=== PATIENT | male | born 1995 | race Caucasian/White ===

== ENCOUNTER 2018-12-10 20:12 | Emergency (ER) | payer MEDICAID, SELFPAY ==
[2018-12-10 20:13] VITALS: BP 131/80; PULSE 116; RESP 16; TEMP 36.7; O2SAT 98; BMI 20.6
--- NOTE | 2018-12-10 20:35 | ED.DCSUM_ITS ---
History of Present Illness Chief Complaint: Headache Detail of Chief Complaint: Migraine Informant: Patient Onset: Today Current Severity: Moderate Maximum Severity: Moderate Narrative: Patient presents with migraine headache. He has a history of similar. This migraine started this morning, the patient did have 2 other migraines within the past week. He states it starts out as a generalized headache and then localizes behind his eyes. He has light sensitivity, nausea, and vomiting. He did hit his head on a rack at work over the weekend, but was having increased frequency of migraines even before this occurred. Patient typically takes Imitrex for his headache, but once he gets to the point where he is vomiting he cannot give the medicine and and it is not beneficial. Past Medical History - Allergies and Home Meds Allergies/Adverse Reactions: Allergies No Known Allergies Allergy (Verified 12/10/18 20:14) Primary Care Physician: Javier Bryan MD [Primary Care Provider] - Prior records reviewed: Yes Past Medical History: - - Reviewed Smoking Status: Former smoker Review of Systems General: Denies: Chills, Fever Eyes: Reports: - - Scotomas associated with migraine ENT: Denies: Bilateral ear pain Cardiovascular: Denies: Chest pain Respiratory: Denies: Dyspnea Gastrointestinal: Reports: Nausea, Vomiting. Denies: Abdominal pain Genitourinary: Denies: Dysuria Musculoskeletal: Denies: Neck pain, Back pain, Extremity Pain Skin: Denies: Rash Neurological: Reports: Headache. Denies: Weakness, Parasthesia Physical Exam Vital Signs/Narrative: Vital Signs Temp Pulse Resp BP Pulse Ox 12/10/18 20:13 98.1 F 116 H 16 131/80 H 98 Inital Vital Signs reviewed: Yes General: Well nourished, Well developed Head: Normocephalic ENT: Moist mucous membranes Neck: Supple Cardiovascular: Regular rate, Regular rhythm Respiratory: No distress, CTA bilaterally Abdomen: Soft, Nontender Extremities: Nontender Skin: Normal color, No rash Neurological: Alert, Oriented x3 Psychological: Normal affect Diagnostic/Tx/Re-eval - Medical Decision Making Patient was given Toradol, Reglan, Benadryl, and IV fluids. On repeat evalu ation he is sleeping comfortably. He easily awakens. He does have significant improvement in his headache. He will be discharged home with family at this time. ED Disposition - Plan for ED Patient: Disposition: Home or Assisted Living Diagnosis: Migraine Instructions: ED, Migraine (Classical) Referrals: Javier Bryan MD [Primary Care Provider] - 3-5 Days if not improving
[2018-12-10] MEDS: 0.9% Normal Saline 1,000 ML 999 ML IV (20:46)
[2018-12-10] MEDS: DiphenhydrAMINE 50 MG/ML Syringe 25 MG IV (20:46)
[2018-12-10] MEDS: Ketorolac 30 MG/ML Syringe IV (20:46)
[2018-12-10] MEDS: Metoclopramide 10 MG/2 ML Vial IV (20:48)
[2018-12-10 21:45] VITALS: BP 125/78; PULSE 78; RESP 18; O2SAT 100
== END 2018-12-10 21:45 | disposition home or self-care (01) ==
PROVIDERS: Emergency Provider Emergency Medicine; Family Provider Family Medicine; PCP Family Medicine
DX: G43.909 Migraine, unspecified, not intractable, without status migrainosus (principal); Z87.891 Personal history of nicotine dependence
CPT/HCPCS: 96374; 96375; 99283; J7030; A4216

== ENCOUNTER 2019-04-29 12:52 | Emergency (ER) | payer MEDICAID, SELFPAY ==
[2019-04-29 12:53] VITALS: BP 124/90; PULSE 71; RESP 16; TEMP 37; BMI 20.9
--- NOTE | 2019-04-29 13:58 | ED.VIS.GEN ---
History of Present Illness Chief Complaint: Headache Informant: Patient, Family Narrative: Patient presents the emergency department with approximately 12 hours of migraine headache. Patient reports having a history of migraines and would typically take Imitrex but he is currently out. Patient describes the headache is right retro-orbital in nature. He has had some nausea and vomiting. No rashes. No neurologic deficits. He sees Dr. Galvan for neurology. He describes this headache as fairly typical for him though he only gets a migraine every 2 to 3 months. He has not found a trigger for these headaches. Past Medical History - Allergies and Home Meds Allergies/Adverse Reactions: Allergies No Known Allergies Allergy (Verified 12/10/18 20:14) Primary Care Physician: Javier Bryan MD [Primary Care Provider] - As Needed Smoking Status: Former smoker Review of Systems General: Denies: Chills, Fever, Sweats Eyes: Denies: Visual changes - bilaterally, Diplopia ENT: Denies: Rhinorrhea, Sore throat Cardiovascular: Denies: Chest pain, Palpitations Respiratory: Denies: Dyspnea, Cough, Dyspnea on exertion Gastrointestinal: Reports: Nausea, Vomiting. Denies: Abdominal pain, Diarrhea, Melena, Hematochezia Genitourinary: Denies: Dysuria, Hematuria, Frequency Musculoskeletal: Denies: Back pain, Extremity Pain Skin: Denies: Rash, Wounds Neurological: Reports: Headache. Denies: Weakness, Parasthesia, Numbness Psych: Denies: Suicidal thoughts, Suicidal ideations Physical Exam Vital Signs/Narrative: Vital Signs Temp Pulse Resp BP 04/29/19 12:53 98.6 F 71 16 124/90 H Inital Vital Signs reviewed: Yes General: Well nourished, Well developed, No Acute Distress, - - Patient is lying in a darkened room. Head: Normocephalic, Atraumatic Eyes: Perrl, EOMI ENT: Moist mucous membranes, No rhinorrhea Neck: Supple, Nontender Cardiovascular: Regular rate, Regular rhythm, No murmurs Respiratory: No distress, CTA bilaterally, Chest nontender Abdomen: Soft, Nontender, Nondistended, Normal bowel sounds Back: Nontender, Normal Inspection Extremities: Nontender, No edema Skin: Normal color, No rash Neurological: Alert, Oriented x3, Cranial nerves II-XII grossly intact, Normal Strength, Normal Sensation Psychological: Normal affect, Normal Mood Diagnostic/Tx/Re-eval - Medical Decision Making Patient received Toradol Compazine Benadryl and IV fluids. Repeat examination was performed. He is improved. He has been given a dose of Solu-Medrol before discharge. I will write for him to have a few Imitrex as well as Zofran at home. Return instructions given. Mother will be driving. ED Disposition - Plan for ED Patient: Disposition: Home or Assisted Living Diagnosis: Migraine Instructions: HEADACHE, Unspecified Prescriptions: Sumatriptan Succinate [Imitrex] 50 mg PO .X1 PRN #5 tab Prescription Printed Ondansetron [Zofran Odt] 4 mg PO Q6H PRN PRN #10 tab PRN Reason: Nausea Prescription Printed Referrals: Javier Bryan MD [Primary Care Provider] - As Needed Additional Instructions: Please follow-up with your neurologist as scheduled
[2019-04-29] MEDS: DiphenhydrAMINE 50 MG/ML Syringe 25 MG IV (14:02)
[2019-04-29] MEDS: Ketorolac 30 MG/ML Syringe IV (14:03)
[2019-04-29] MEDS: proCHLORPERazine 10 MG/2 ML Vial IV (14:04)
[2019-04-29] MEDS: 0.9% Normal Saline 1,000 ML 999 ML IV (14:04)
[2019-04-29] MEDS: MethylPREDNISolone 125 MG/2 ML Vial IV (15:16)
[2019-04-29 15:31] VITALS: BP 132/80; PULSE 80; RESP 16; O2SAT 99
== END 2019-04-29 15:35 | disposition home or self-care (01) ==
PROVIDERS: Emergency Provider Emergency Medicine; PCP Family Medicine
DX: G43.909 Migraine, unspecified, not intractable, without status migrainosus (principal); Z87.891 Personal history of nicotine dependence
CPT/HCPCS: 96361; 96374; 96375; 99283; J7030; A4216

== ENCOUNTER 2019-06-13 21:56 | Emergency (ER) | payer OTHER, MEDICAID, SELFPAY ==
[2019-06-13 21:57] VITALS: BP 146/90; PULSE 106; RESP 18; TEMP 36.8; O2SAT 96; BMI 22.0
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
[2019-06-13] MEDS: oxyCODONE 5 MG Tablet PO (22:49)
[2019-06-13 23:36] VITALS: BP 136/80; PULSE 92; RESP 18; O2SAT 96
== END 2019-06-13 23:37 | disposition home or self-care (01) ==
PROVIDERS: Emergency Provider Emergency Medicine; PCP Nurse Practitioner Primary Care
DX: S06.0X0A Concussion without loss of consciousness, initial encounter (principal); S13.4XXA Sprain of ligaments of cervical spine, initial encounter; W31.89XA Contact with other specified machinery, initial encounter; Y92.89 Other specified places as the place of occurrence of the external cause; Y99.0 Civilian activity done for income or pay
CPT/HCPCS: 70450; 72125; 99284

== ENCOUNTER 2019-07-27 18:01 | Emergency (ER) | payer MEDICAID, SELFPAY ==
[2019-06-27 10:36] VITALS: BMI 22.0
[2019-07-27 18:02] VITALS: BP 136/76; PULSE 95; RESP 18; TEMP 36.9; O2SAT 99; BMI 20.6
--- NOTE | 2019-07-27 18:14 | EKG12_ITS ---
Test Reason : CP Blood Pressure : / mmHG Vent. Rate : 084 BPM Atrial Rate : 084 BPM P-R Int : 140 ms QRS Dur : 092 ms QT Int : 348 ms P-R-T Axes : 076 068 059 degrees QTc Int : 411 ms Normal sinus rhythm with sinus arrhythmia Normal ECG Confirmed by FELIPA GREGORY, WIN ([id number]), supervising editor news reel ARCHIE CELESTIN ([id number]) on 07/29/2019 10:16:00 AM Referred By: Confirmed By:WIN LEO MD
--- NOTE | 2019-07-27 18:15 | ED.DCSUM_ITS ---
History of Present Illness Chief Complaint: Chest Pain Informant: Patient Onset: Today Narrative: Patient states that approximately 2 hours ago he began to have a sharp chest pain mid aspect of his chest. States he was very mild and he was able to go for short bike ride through the [place] with his girlfriend. However on his drive home he states he got worse. It started making him feel short of breath. He states the chest pain and the shortness of breath is made him feel like coughing. Denies any fevers. No URI symptoms. He is a has a history of Tourette's but is not currently on any medications. Non-smoker. No DVT PE risk factors. Past Medical History - Allergies and Home Meds Allergies/Adverse Reactions: Allergies No Known Allergies Allergy (Verified 07/27/19 18:02) Primary Care Physician: Gi Henderson NP-C [Primary Care Provider] - Smoking Status: Never smoker Review of Systems General: Denies: Chills, Fever, Sweats Eyes: Denies: Visual changes - bilaterally, Diplopia ENT: Denies: Rhinorrhea, Sore throat Cardiovascular: Reports: Chest pain. Denies: Palpitations Respiratory: Reports: Dyspnea. Denies: Cough, Dyspnea on exertion Gastrointestinal: Denies: Abdominal pain, Nausea, Vomiting, Diarrhea, Melena, Hematochezia Genitourinary: Denies: Dysuria, Hematuria, Frequency Musculoskeletal: Denies: Back pain, Extremity Pain Skin: Denies: Rash, Wounds Neurological: Denies: Headache, Weakness, Parasthesia, Numbness Physical Exam Vital Signs/Narrative: Vital Signs Temp Pulse Resp BP Pulse Ox 07/27/19 18:02 98.5 F 95 18 136/76 H 99 Inital Vital Signs reviewed: Yes General: Well nourished, Well developed, No Acute Distress Head: Normocephalic, Atraumatic Eyes: Perrl, EOMI ENT: Moist mucous membranes, No rhinorrhea Neck: Supple, Nontender Cardiovascular: Regular rate, Regular rhythm, No murmurs Respiratory: No distress, CTA bilaterally, Chest tenderness - Tender palpation along the costochondral border of the mid chest Abdomen: Soft, Nontender, Nondistended, Normal bowel sounds Back: Nontender, Normal Inspection Extremities: Nontender, No edema Skin: Normal color, No rash Neurological: Alert, Oriented x3, Cranial nerves II-XII grossly intact, Normal Strength, Normal Sensation Psychological: - - Patient appears anxious Diagnostic/Tx/Re-eval Laboratory Last Values WBC 7.1 K/mm3 (4.4-11.0) 07/27/19 18:30 RBC 4.72 M/mm3 (4.6-6.2) 07/27/19 18:30 Hgb 14.2 g/dL (13.0-16.5) 07/27/19 18:30 Hct 40.0 % (40-54) 07/27/19 18:30 MCV 84.7 fL (80-94) 07/27/19 18:30 MCH 30.1 pg (27.0-32.0) 07/27/19 18: MCHC 35.5 g/dL (32-36) 07/27/19 18: RDW Std Deviation 36.6 fl (35.1-43.9) 07/27/19 18: RDW Coeff of Malika 11.9 % (11.6-14.6) 07/27/19 18: Plt Count 232 K/mm3 (150-450) 07/27/19 18: MPV 9.1 fl (6.2-12.0) 07/27/19 18:30 Immature Gran % (Auto) 0.300 % (0.0-0.9) 07/27/19 18:30 Neut % (Auto) 60.4 % (47-70) 07/27/19 18:30 Lymph % (Auto) 28.9 % (19-41) 07/27/19 18:30 [place] % (Auto) 8.4 % (0-10) 07/27/19 18:30 Eos % (Auto) 1.3 % (0-5) 07/27/19 18:30 Baso % (Auto) 0.7 % (0-1) 07/27/19 18:30 Absolute Neuts (auto) 4.3 X10^3/uL (2.0-7.7) 07/27/19 18:30 Absolute Lymphs (auto) 2.04 X10^3/uL (0.83-4.51) 07/27/19 18:30 Nucleated RBC % 0 % (0-5) 07/27/19 18:30 D-Dimer Quant (PE/DVT) 0.28 FEU/ug/m (0.27-0.49) 07/27/19 18:30 Sodium 140 mmol/L (136-145) 07/27/19 18:30 Potassium 3.6 mmol/L (3.5-5.1) 07/27/19 18:30 Chloride 104 mmol/L (98-107) 07/27/19 18:30 Carbon Dioxide 29.0 mmol/L (21.0-32.0) 07/27/19 18:30 Anion Gap 7 (5-15) 07/27/19 18:30 BUN 17 mg/dL (7-18) 07/27/19 18:30 Creatinine 1.13 mg/dL (0.70-1.30) 07/27/19 18:30 Estim Creat Clear Calc 100.00 ml/min 07/27/19 18:30 Est GFR (MDRD) Af Amer 104 mL/min (>60) 07/27/19 18:30 Est GFR (MDRD) Non-Af 86 mL/min (>60) 07/27/19 18:30 BUN/Creatinine Ratio 15.0 RATIO (10-20) 07/27/19 18:30 Glucose 90 mg/dL (74-106) 07/27/19 18:30 Calcium 9.2 mg/dL (8.5-10.1) 07/27/19 18:30 Troponin I < 0.015 ng/mL (<0.045) 07/27/19 18:30 - EKG Initial EKG Interpretation: Sinus Rhythm - EKG demonstrates a normal sinus rhythm at a rate of 84 without ectopy or concerning features of ACS - Medical Decision Making Chest x-ray did not show pneumothorax pleural effusion infiltrate or concerning features. Normal mediastinal silhouette. D-dimer and troponin negative. CBC and BMP were normal. His EKG is normal sinus rhythm. He has had no events on the monitor. As his pain was reproducible with palpation I give him a dose of Toradol. I believe this to be costochondritis with probably a degree of anxiety. Would recommend anti-inflammatories and avoidance of heavy lifting. He works in the [employer] department has a shift tomorrow I will write him a note if he is feeling he is unable to perform his duties. ED Disposition - Plan for ED Patient: Disposition: Home or Assisted Living Diagnosis: Costochondritis, acute, Dyspnea, Chest pain Instructions: ED CHEST PAIN [place] Referrals: Gi Henderson, HOUSEKEEPING SUPERVISOR [employer] [Primary Care Provider] - 1 Week if not improving
[2019-07-27] MEDS: Ketorolac 30 MG/ML Syringe IV (18:36)
[2019-07-27 18:39] VITALS: BP 115/80; PULSE 79; RESP 16; TEMP 36.6; O2SAT 97
--- NOTE | 2019-07-27 18:40 | RAD_ITS ---
STUDY: X-RAY CHEST REASON FOR EXAM: Male, 24 years old. chest pain with sob and cough TECHNIQUE: Single frontal view of the chest. COMPARISON: None. FINDINGS: The lungs are clear and expanded. There is no demonstrated pleural abnormality. Normal size heart. Normal mediastinum and martina. Normal visualized pulmonary arteries. Normal visualized aortic arch and descending thoracic aorta. Normal visualized thoracic spine. Normal visualized ribs, clavicles, and shoulders. There is no demonstrated abnormality of the visualized soft tissue structures of the upper abdomen. RAD/Chest 1 View (Portable) IMPRESSION: Normal x-ray examination of the chest. Electronically Signed: Nicholas Kerr MD at 19:31 EDT , Service support ,
[2019-07-27 18:41] LABS: Absolute Lymphocyte Count 2.04 X10^3/uL (0.83-4.51); Absolute Neutrophil Count 4.3 X10^3/uL (2.0-7.7); Basophil# 0.05 X10^3/uL; Basophil% 0.7 % (0-1); Eosinophil# 0.09 X10^3/uL; Eosinophils% 1.3 % (0-5); Hemoglobin 14.2 g/dL (13.0-16.5); Lymphocyte # 2.04 X10^3/ul (4.0); Lymphocyte % 28.9 % (19-41); Mean Corp Hgb Conc 35.5 g/dL (32-36); Mean Corpuscular Hgb 30.1 pg (27.0-32.0); Mean Corpuscular Volume 84.7 fL (80-94); Mean Platelet Vol. 9.1 fl (6.2-12.0); Monocyte# 0.59 X10^3/uL; Monocyte% 8.4 % (0-10); NRBC Flagged by Analyzer 0 % (0-5); Neutrophil # 4.26 X10^3/uL (2.7-7.7); Neutrophil % 60.4 % (47-70); Platelet Count 232 K/mm3 (150-450); RBC Distribution Width CV 11.9 % (11.6-14.6); RBC Distribution Width SD 36.6 fl (35.1-43.9); Red Blood Count 4.72 M/mm3 (4.6-6.2); White Blood Count 7.1 K/mm3 (4.4-11.0)
[2019-07-27 18:53] LABS: D-Dimer Quantitative (DVT/PE) 0.28 FEU/ug/m (0.27-0.49)
[2019-07-27 19:01] LABS: Anion Gap 7 (5-15); BUN 17 mg/dL (7-18); Calcium,Total 9.2 mg/dL (8.5-10.1); Chloride 104 mmol/L (98-107); Creatinine, Serum 1.13 mg/dL (0.70-1.30); EST Glomerular Filtration Rate 86 mL/min (>60); Est Glom Filt Rate - Afr Amer 104 mL/min (>60); Glucose 90 mg/dL (74-106); Potassium 3.6 mmol/L (3.5-5.1); Sodium Level 140 mmol/L (136-145)
[2019-07-27 19:29] VITALS: BP 115/82; PULSE 84; RESP 16; O2SAT 98
--- NOTE | 2019-07-27 19:29 | ED.RN ---
THIS NURSE REVIEWED D/C INSTRUCTIONS WITH PT. PT VERBALIZED UNDERSTANDING OF INSTRUCTIONS. IV D/C. IV CATHETER INTACT. PT TOLERATED WELL. PT DENIES FURTHER NEEDS OR QUESTIONS AT THIS TIME
== END 2019-07-27 19:30 | disposition home or self-care (01) ==
PROVIDERS: Emergency Provider Emergency Medicine; PCP Nurse Practitioner Primary Care
DX: M94.0 Chondrocostal junction syndrome [Tietze] (principal); R06.00 Dyspnea, unspecified; R07.9 Chest pain, unspecified
CPT/HCPCS: 71045; 80048; 84484; 85025; 85379; 93005; 96374; 99284; A4216

== ENCOUNTER 2019-09-04 14:11 | Emergency (ER) | payer MEDICAID, SELFPAY ==
[2019-09-04 14:12] VITALS: BP 132/73; PULSE 81; RESP 16; TEMP 36.6; O2SAT 98; BMI 21.1
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
== END 2019-09-04 14:55 | disposition home or self-care (01) ==
PROVIDERS: Emergency Provider Emergency Medicine; PCP Nurse Practitioner Primary Care
DX: S16.1XXA Strain of muscle, fascia and tendon at neck level, initial encounter (principal); S39.012A Strain of muscle, fascia and tendon of lower back, initial encounter; Y92.410 Unspecified street and highway as the place of occurrence of the external cause
CPT/HCPCS: 99282

== ENCOUNTER 2019-09-10 15:30 | Emergency (ER) | payer MEDICAID, SELFPAY ==
[2019-09-10 15:31] VITALS: BP 134/84; PULSE 86; RESP 18; TEMP 36.7; O2SAT 96; BMI 20.5
--- NOTE | 2019-09-10 16:22 | ED.DCSUM_ITS ---
History of Present Illness Chief Complaint: Dental Informant: Patient Onset: Yesterday Context: Sudden Onset Timing: Continuous Quality: Pain Location: Left lower molar Current Severity: Mild Maximum Severity: Severe Worsened by: Nothing specific Relieved by: - - Nothing Associated Symptoms: - - No fever, jaw swelling, facial swelling, redness, hot or cold insensitivity. Narrative: Patient is a 24-year-old male presents with dental pain that started 24 hours ago. He states putting ice pack on his jaw helps the pain. He is able to open his mouth completely. There is no traumatic fever, heart murmur, SBE or being immune suppressed. He has no antibiotic allergies. There is been no change in voice. There is been no fever or chills. He does not have a dentist. Mother states they attempted to call dentist and the soonest they were able to get an appointment was in November. Prior similar symptoms: No Recent Illness/Hospitalization: No - Past Medical History (1) No significant past medical history Status: Acute Past Medical History - Allergies and Home Meds Allergies/Adverse Reactions: Allergies No Known Allergies Allergy (Verified 09/10/19 15:32) Primary Care Physician: Gi Henderson NP-C [Primary Care Provider] - Past Medical History: None Surgical History: no surgical history Lives: With Family Smoking Status: Never smoker Alcohol: None Drugs: None Review of Systems General: Denies: Chills, Fever, Malaise, Subjective Eyes: Denies: Visual changes - bilaterally, Blurred Vision - bilaterally ENT: Denies: Bilateral ear pain, Rhinorrhea, Sore throat Gastrointestinal: Denies: Nausea, Vomiting Musculoskeletal: Denies: Myalgias, Arthralgias, Neck pain, -, - Skin: Denies: Rash Neurological: Denies: Headache, Weakness, Parasthesia Allergy: Denies: Uticaria, Swelling of the mouth, Swelling of the tongue Physical Exam Vital Signs/Narrative: Vital Signs Temp Pulse Resp BP Pulse Ox 09/10/19 15:31 98.1 F 86 18 134/84 H 96 Inital Vital Signs reviewed: Yes General: Well nourished, Well developed Head: Normocephalic, Atraumatic ENT: Moist mucous membranes, Nasal congestion, No nasal trauma, No rhinorrhea. Negative for: Sinus tenderness Mouth/Throat: Normal oral mucosa, Normal posterior oropharynx, No sublingual edema, Normal Stensen's duct, Dental abscess, Focal dental decay, Focal gum swelling, Gingivitis, Tenderness on tooth percussion. Negative for: Normal inspection lips/gums, No dental tenderness, No focal abscess, Apthous ulcer, Dental trauma, Dental avulsion, Dentral fracture, Filling loss, Trismus, Widespread dental decay Neck: Supple, No lymphadenopathy, Nontender, No JVD, - - Maninder is midline. There is no inspiratory expiratory stridor.. Negative for: Soft tissue swelling, Submandibular soft tissue swelling, Submental soft tissue swelling, Parotid tenderness Cardiovascular: Regular rate, Regular rhythm, No murmurs, Normal S1, Normal S2 Respiratory: No distress, CTA bilaterally, Chest nontender Skin: Normal color, No rash. Negative for: Cyanosis, Diaphoresis, Jaundice, No Trauma Neurological: Alert, Oriented x3, Cranial nerves II-XII grossly intact, Normal Strength, Normal Sensation Psychological: Normal affect, Normal Mood Diagnostic/Tx/Re-eval - Medical Decision Making Has dental decay with dental abscess. There is no evidence of Ludewig's angina. There is no trismus. There is no fluctuance. Patient probably has an apical abscess. The abscess is not fistulized yet. ED Disposition - Plan for ED Patient: Disposition: Home or Assisted Living Diagnosis: Dental abscess, Complex dental cavity Instructions: Dental Abscess Prescriptions: Clindamycin HCl [Cleocin] 300 mg PO Q6H #28 cap Transmission Status: Pending to [facility] Naproxen [Naprosyn] 500 mg PO BID #14 tab Transmission Status: Pending to [facility] Referrals: Gi Henderson NP-C [Primary Care Provider] - Dentist,Your [STAFF PHYSICIAN] - 5-7 Days
[2019-09-10] MEDS: Clindamycin HCl 150 MG Capsule 300 MG PO (16:49)
[2019-09-10] MEDS: Naproxen 250 MG Tablet 500 MG PO (16:49)
[2019-09-10 16:52] VITALS: BP 138/89; PULSE 78; RESP 16
== END 2019-09-10 16:56 | disposition home or self-care (01) ==
LOC: ED 16:40
PROVIDERS: Emergency Provider Emergency Medicine; PCP Nurse Practitioner Primary Care
DX: K02.9 Dental caries, unspecified (principal); K04.7 Periapical abscess without sinus
CPT/HCPCS: 99283

== ENCOUNTER 2020-03-09 18:10 | Emergency (ER) | payer MEDICAID, SELFPAY ==
[2020-03-09 18:11] VITALS: BP 120/65; PULSE 94; RESP 20; TEMP 36.2; O2SAT 98; BMI 20.9
--- NOTE | 2020-03-09 18:19 | ED.VISSUMM ---
- ER Visit Summary Date of Service: 03/09/20 Chief Complaint: [Dental pain] History of Present Illness: The patient is a 24 M [presents to the emergency department complaint of dental pain that started this morning. Patient states that he has a broken and carried left lower molar that is been giving him trouble for some time. Patient states he is been unable to get into a dentist and when he called today was told he could get in for a month. Patient was told to come to the emergency department at least get an antibiotic. Patient denies any fevers, chills, or sweats. Patient states that he took ibuprofen and then get much pain relief and a gave him nausea.] Physical Examination: [HEENT-PERRLA, EOMI. Cranial nerves II through XII grossly intact. TMs clear. Mucous membranes moist. No adenopathy. Dentition-patient has tenderness to palpation over tooth #18 left lower second molar. The tooth is broken and carried to the gumline. There is no gingival discrete abscess noted. He has some faint gingival erythema. No facial cellulitis. Uvula is in the midline. No trismus. Cardiovascular-regular rate and rhythm without murmur or ectopy Lungs-clear to auscultation, chest wall stable without crepitus or subcu emphysema Abdomen-normoactive bowel sounds, soft, nontender, no rebound or rigidity, no peritoneal signs. Extremities-intact ?4, normal range of motion, normal pulses, atraumatic] Test Results: [None indicated] Emergency Department Course and Treatment: [] Treatment Plan: [Patient will be given a prescription for clindamycin and a few [place] for pain. He is given a list of dentists in the area.] Disposition: [Discharged home in stable condition] Impression: [Dental pain secondary to dental caries] This note was generated with [employer] dictation software. It may contain incorrect words, spelling, and punctuation that were not noted in review of the chart prior to signing ED Disposition - Plan for ED Patient: Referrals: Gi Hendesron NP, [employer]INT SPLITTER-C [Primary Care Provider] -
--- NOTE | 2020-03-09 18:21 | DCINST.ED_ITS ---
ED Disposition - Plan for ED Patient: Instructions: ED Dental Pain Prescriptions: Clindamycin HCl [Cleocin] 300 mg PO Q6H #40 cap Prescription Printed Hydrocodone Bitart/Apap 5-325 [[place] 5MG-325MG] 1 tab PO Q4H PRN PRN 2 Days #10 tab PRN Reason: Pain Prescription Printed Referrals: Gi Henderson GENERAL INTERNAL MEDICINE DOCTOR, GENERAL INTERNAL MEDICINE DOCTOR-C [Primary Care Provider] - Additional Instructions: see a dentist
--- NOTE | 2020-03-09 18:21 | ED.DEP ---
ED Disposition - Plan for ED Patient: Instructions: ED Dental Pain Prescriptions: Clindamycin HCl [Cleocin] 300 mg PO Q6H #40 cap Prescription Printed Hydrocodone Bitart/Apap 5-325 [[place] 5MG-325MG] 1 tab PO Q4H PRN PRN 2 Days #10 tab PRN Reason: Pain Prescription Printed Referrals: Gi Henderson FISHING HAND, FISHING HAND-C [Primary Care Provider] - Additional Instructions: see a dentist
[2020-03-09 18:35] VITALS: BP 120/65; PULSE 94; RESP 18
== END 2020-03-09 18:35 | disposition home or self-care (01) ==
LOC: ED 18:31
PROVIDERS: Emergency Provider Emergency Medicine; PCP Nurse Practitioner Primary Care
DX: K02.9 Dental caries, unspecified (principal)
CPT/HCPCS: 99282

== ENCOUNTER 2023-12-03 09:17 | Emergency (ER) | payer OTHER, SELFPAY ==
[2023-12-03 09:19] VITALS: BP 113/73; PULSE 126; RESP 18; TEMP 37; O2SAT 99; BMI 21.9
--- NOTE | 2023-12-03 09:36 | EX.ED.GENINJ ---
HPI History of Present Illness Chief Complaint: Nausea/Vomiting/Diarrhea [facility] Medical History (Updated 09/18/21 @ 09:10 by Yanely Wilkinson) history of a broken arm Constipation Back pain Neck pain Headache Shoulder pain Home Medications ?Medication ?Instructions ?Recorded ?Last Taken ?Type clindamycin HCl 300 mg capsule 300 mg PO Q6H #28 caps 09/10/19 Unknown Rx naproxen 500 mg tablet 500 mg PO BID #14 tabs 09/10/19 Unknown Rx clindamycin HCl 300 mg capsule 300 mg PO Q6H #40 caps 03/09/20 Unknown Rx Allergy/AdvReac Type Severity Reaction Status Date / Time morphine AdvReac Constipatio Verified 12/03/23 09:18 n Family History Other Cancer Diabetes Hypertension Hypotension Surgical History (Updated 07/27/19 @ 18:[address] Rod Gilman, DO) History of colonoscopy Social History (Updated 06/27/19 @ 11:23 by Ryan KOLB, KENNEDI) Smoking Status: Never smoker EXAM Physical Exam Const Vital Signs: 12/03/23 09:19 12/03/23 11:18 12/03/23 13:00 Temperature 98.6 F Temperature Source Oral Pulse Rate 126 H 72 72 Respiratory Rate 18 16 16 Blood Pressure 113/73 160/64 H 158/60 H Blood Pressure Mean 86 96 92 Pulse Ox 99 99 99 Oxygen Delivery Method Room Air [facility] MDM Narrative Medical decision making narrative: HISTORY OF PRESENT ILLNESS: 28-year-old male presents with concern for nausea vomiting diarrhea since yesterday. Notes his vomitus is brown/red. Notes he is concerned for dehydration. 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 Notes his coworker was out with nausea vomiting and diarrhea as well. He denies recent travel, antibiotics new foods. Denies any blood in his stool. Denies any fever or abdominal pain. Denies any syncope chest pain shortness of breath or palpitations. Denies history of abdominal surgery. No sick contacts at home. REVIEW OF SYSTEMS: Pertinent positives: Nausea vomiting diarrhea Pertinent negatives: As per HPI PHYSICAL EXAM: Nursing triage notes reviewed, Vital signs reviewed Constitutional: please see mdm HENT: MMM Eyes: Pupils equal round and reactive to light, Extraocular muscles intact Neck: No stridor, no JVD, full neck ROM Lungs: Clear to auscultation, No wheezing or rales. No increased work of breathing, no conversational dyspnea, no accessory muscle use, no nasal flaring. No respiratory distress noted Heart: Regular rate and rhythm, No murmurs, No rubs and No gallops, 2+ distal pulses (radial, femoral, posterior tibial) in all extremities Abdomen: Soft, there is no tenderness, rigidity, rebound or guarding, no obvious peritoneal signs, no palpable pulsatile abdominal masses, no auscultated abdominal bruit : No CVAT Extremities: No edema Neuro: No focal neurological deficits, cranial nerves II through XII intact, 5/5 strength in all extremities. Intact sensation to light touch in all extremities, 2+ reflexes bilateral patella tendons. Normal gait. No ataxia. Skin: No rash or lesions noted MEDICAL DECISION MAKING: Chief Complaint: Nausea vomiting diarrhea External records reviewed: Reviewed prior allergies, problem list, vital signs, medications Factors affecting care: none Social determinants of health: none History obtained from others: none Consults: none [facility] Narrative: The patient was initially tachycardic otherwise hemodynamically stable and afebrile. Exam benign. Abdomen was soft and nontender not consistent with acute surgical process of the abdomen or pelvis. There is no fever report abdominal tenderness recent travel, antibiotics, bloody diarrhea to suggest invasive bacterial infection. I considered the following differential diagnosis: Dehydration, anemia, electrolyte disturbance, acute kidney injury, bowel perforation, bowel obstruction The patient's exam was benign. I obtained labs to rule out signs of significant dehydration, hepatobiliary pathology, pancreatitis, severe systemic inflammation. Despite fluid shortage I gave patient 1 L normal saline given tachycardia and concern for significant dehydration. Also treated with Zofran for nausea and vomiting control. ALL IMAGES (IF OBTAINED) HAVE BEEN PERSONALLY REVIEWED AND INTERPRETED BY MYSELF. CBC leukocytosis suggestive of system inflammation, noted increased hemoglobin suggestive hemoconcentration dehydration BMP with mild hyponatremia, mild renal insufficiency but no other severe Cable normalities or signs of metabolic acidosis or endorgan hypoperfusion LFTs show no evidence of hepatobiliary pathology. Lipase is wnl indicating no pancreatic inflammation. Given leukocytosis obtain a CT scan to rule out perforation or acute surgical process in the abdomen. CT scan was negative for acute surgical pathology. On repeat abdominal exam the patient's exam remained benign. He is able to tolerate p.o. Given prescription for Zofran encouraged to take in plenty of fluids. He likely 7 for viral gastroenteritis The patient and/or family, caregivers express understanding. The patient and/or family, caregivers agrees with the plan. Shared decision making: I will have a discussion with the patient and or visitors regarding risk/benefits of further testing or admission. They will be made aware of of the risk/benefits inherent in this decision they will be given the opportunity to voice understanding. Total critical care time today provided was at least 0 minutes. This excludes separately billable procedures. Critical care time (if documented) is secondary to the patient having high probability of clinically significant/life threatening deterioration in the patient's condition which required my urgent intervention. Impression: 1. Nausea vomiting diarrhea 2. Leukocytosis 3. Dehydration 4. Viral gastroenteritis Dispo: Discharge home This note was generated with [employer] dictation software. It may contain incorrect words, spelling, and punctuation that were not noted in review of the chart prior to signing. Lab Data Labs: Laboratory Results - last 24 hr 12/03/23 10:15 WBC 15.4 H RBC 5.95 Hgb 17.1 H Hct 49.7 MCV 83.5 MCH 28.7 MCHC 34.4 RDW Std Deviation 36.7 RDW Coeff of Malika 12.1 Plt Count 316 MPV 9.2 Immature Gran % (Auto) 0.400 Neut % (Auto) 85.3 H Lymph % (Auto) 5.3 L [place] % (Auto) 8.7 Eos % (Auto) 0.0 Baso % (Auto) 0.3 Absolute Neuts (auto) 13.1 H Absolute Lymphs (auto) 0.82 L Nucleated RBC % 0 Sodium 135 L Potassium 5.0 Chloride 102 Carbon Dioxide 29.0 Anion Gap 4 L BUN 21 H Creatinine 1.33 H Estim Creat Clear Calc 87.48 Est GFR (MDRD) Af Amer 83 Est GFR (MDRD) Non-Af 69 BUN/Creatinine Ratio 15.8 Glucose 136 H Calcium 9.9 Total Bilirubin 0.70 Direct Bilirubin 0.14 AST 21 ALT 22 Alkaline Phosphatase 75 Total Protein 8.5 H Albumin 4.4 Globulin 4.1 Lipase 36 Radiography Diagnostic Testing: Clinical Impression(s) from Imaging Studies Abdomen/Pelvis CT 12/03/23 11:08 IMPRESSION: Large amount of gas and stool within the sigmoid colon and rectum associated with dilatation and circumferential wall thickening, cannot exclude proctocolitis. There is a moderate amount of associated gas and stool within the ascending, transverse and descending colon as well. Electronically Signed: Abby Jo MD at 11:32 EDT , Discharge Plan Triage Chief Complaint: Nausea/Vomiting/Diarrhea ED Provider: Ananda Hitchcock Dx/Rx/DC Orders Prescriptions: No Action clindamycin HCl 300 MG capsule 300 mg PO Q6H Qty: 28 0RF naproxen 500 MG tablet 500 mg PO BID Qty: 14 0RF clindamycin HCl 300 MG capsule 300 mg PO Q6H Qty: 40 0RF Primary Care Provider: Gi Henderson NP Referrals: Gi Henderson NP, [employer] SH[employer] SUPERVISOR-C [Primary Care Provider] - Print Language: Montenegrin
[2023-12-03] MEDS: 0.9% Normal Saline (1000mL) 1,000 ML 999 ML IV (10:18)
[2023-12-03] MEDS: Ondansetron 4 MG/2 ML Vial IV (10:18)
[2023-12-03 10:42] LABS: Absolute Lymphocyte Count 0.82 X10^3/uL (0.83-4.51); Absolute Neutrophil Count 13.1 X10^3/uL (2.0-7.7); Basophil# 0.05 X10^3/uL; Basophil% 0.3 % (0-1); Hematocrit 49.7 % (40-54); Hemoglobin 17.1 g/dL (13.0-16.5); Lymphocyte # 0.82 X10^3/ul (0.83-4.51); Lymphocyte % 5.3 % (19-41); Mean Corp Hgb Conc 34.4 g/dL (32-36); Mean Corpuscular Hgb 28.7 pg (27.0-32.0); Mean Corpuscular Volume 83.5 fL (80-94); Mean Platelet Vol. 9.2 fl (6.2-12.0); Monocyte# 1.34 X10^3/uL; Monocyte% 8.7 % (0-10); NRBC Flagged by Analyzer 0 % (0-5); Neutrophil # 13.09 X10^3/uL (2.7-7.7); Neutrophil % 85.3 % (47-70); Platelet Count 316 K/mm3 (150-450); RBC Distribution Width CV 12.1 % (11.6-14.6); RBC Distribution Width SD 36.7 fl (35.1-43.9); Red Blood Count 5.95 M/mm3 (4.6-6.2); White Blood Count 15.4 K/mm3 (4.4-11.0)
[2023-12-03 10:50] LABS: AST(SGOT) 21 U/L (15-37); Alanine Aminotransfer ALT/SGPT 22 U/L (16-61); Albumin, Serum 4.4 g/dL (3.2-5.0); Alkaline Phosphatase 75 U/L (45-117); Anion Gap 4 (5-15); BUN 21 mg/dL (7-18); BUN/Creat Ratio 15.8 RATIO (10-20); Bilirubin, Direct 0.14 mg/dL (0.00-0.30); Calcium,Total 9.9 mg/dL (8.5-10.1); Chloride 102 mmol/L (98-107); Creatinine, Serum 1.33 mg/dL (0.70-1.30); EST Glomerular Filtration Rate 69 mL/min (>60); Est Glom Filt Rate - Afr Amer 83 mL/min (>60); Estimated Creatinine Clearance 87.48 ml/min; Globulin 4.1 g/dL (2.2-4.2); Glucose 136 mg/dL (74-106); Lipase 36 U/L (13-75); Protein, Total 8.5 g/dL (6.4-8.2); Sodium Level 135 mmol/L (136-145)
--- NOTE | 2023-12-03 11:08 | CT_ITS ---
STUDY: CT ABDOMEN AND PELVIS WITH CONTRAST - URINARY TRACT REASON FOR EXAM: Male, 28 years old. Diffuse abdominal pain RADIATION DOSAGE (If Supplied By Facility): CTDIvol = ( 7.38 ) mGy, DLP = ( 296.45 ) mGycm TECHNIQUE: IV 100mL Isovue-300 was administered. Transaxial images were obtained from the dome of the diaphragm to the symphysis pubis subsequent to intravenous contrast administration Multiplanar coronal and sagittal images were reformatted. The protocol utilizes one or more of the following dose reduction techniques: automated exposure control, adjustment of mA and/or kV according to patient size,and/or use of iterative reconstruction technique. COMPARISON: April 08, 2016 FINDINGS: The visualized lung bases are unremarkable. The visualized portions of the heart are within normal limits. Normal liver. Normal gallbladder and extrahepatic biliary system. Normal spleen. Normal pancreas. Normal bilateral adrenal glands. Normal visualized stomach. Normal small intestine. There is a large amount of stool within a distended sigmoid colon. There is circumferential wall thickening of the sigmoid colon. There is an associated large amount of gas and stool within a distended rectum associated with rectal wall thickening as well. There is mass effect on the urinary bladder secondary to the distended sigmoid colon and rectum. There is a moderate amount of gas and stool within the ascending, transverse and descending colon as well. The appendix is visualized and appears normal. Normal abdominal aorta. No retroperitoneal adenopathy. Normal right kidney. Normal left kidney. Normal abdominal wall. There is a stable round sclerotic focus within the left iliac wing which may reflect a bone island. There is a 5 mm radiolucency within the left iliac wing as well may be secondary to demineralization or cyst. CT/Abdomen/Pelvis W IV Cont ONLY IMPRESSION: Large amount of gas and stool within the sigmoid colon and rectum associated with dilatation and circumferential wall thickening, cannot exclude proctocolitis. There is a moderate amount of associated gas and stool within the ascending, transverse and descending colon as well. Electronically Signed: Abby Jo MD at 11:32 EDT ,
[2023-12-03 11:18] VITALS: BP 160/64; PULSE 72; RESP 16; O2SAT 99
[2023-12-03 13:00] VITALS: BP 158/60; PULSE 72; RESP 16; O2SAT 99
[2023-12-03 13:36] VITALS: PULSE 106; RESP 18; TEMP 37.3; O2SAT 95
== END 2023-12-03 13:37 | disposition home or self-care (01) ==
PROVIDERS: Emergency Provider Emergency Medicine; PCP Nurse Practitioner Primary Care; Visit Provider Emergency Medicine
DX: A08.4 Viral intestinal infection, unspecified (principal); N28.9 Disorder of kidney and ureter, unspecified; D72.829 Elevated white blood cell count, unspecified; E86.0 Dehydration; E87.1 Hypo-osmolality and hyponatremia
CPT/HCPCS: 74177; 80048; 80076; 83690; 85025; 96361; 96374; 99282; J7030; Q9967; J2405

== ENCOUNTER 2023-12-04 21:56 | Emergency (ER) | payer OTHER, SELFPAY ==
[2023-12-04 21:56] VITALS: BP 125/67; PULSE 110; RESP 17; TEMP 36; O2SAT 99; BMI 21.9
[2023-12-04] MEDS: 0.9% Normal Saline (1000mL) 1,000 ML 999 ML IV (23:27)
[2023-12-04 23:28] VITALS: TEMP 36.6
[2023-12-04] MEDS: DiphenhydrAMINE 50 MG/ML Syringe 25 MG IV (23:28)
[2023-12-04] MEDS: proCHLORPERazine 10 MG/2 ML Vial IV (23:28)
[2023-12-04 23:31] LABS: Absolute Lymphocyte Count 1.19 X10^3/uL (0.83-4.51); Absolute Neutrophil Count 11.3 X10^3/uL (2.0-7.7); Basophil# 0.03 X10^3/uL; Basophil% 0.2 % (0-1); Hematocrit 47.9 % (40-54); Hemoglobin 16.7 g/dL (13.0-16.5); Lymphocyte # 1.19 X10^3/ul (0.83-4.51); Lymphocyte % 8.2 % (19-41); Mean Corp Hgb Conc 34.9 g/dL (32-36); Mean Corpuscular Hgb 29.1 pg (27.0-32.0); Mean Corpuscular Volume 83.6 fL (80-94); Mean Platelet Vol. 9.2 fl (6.2-12.0); Monocyte# 1.93 X10^3/uL; Monocyte% 13.3 % (0-10); NRBC Flagged by Analyzer 0 % (0-5); Neutrophil # 11.31 X10^3/uL (2.7-7.7); POSITIVE DIFFERENTIAL YES; Platelet Count 338 K/mm3 (150-450); RBC Distribution Width CV 12.3 % (11.6-14.6); RBC Distribution Width SD 37.1 fl (35.1-43.9); Red Blood Count 5.73 M/mm3 (4.6-6.2); White Blood Count 14.5 K/mm3 (4.4-11.0)
[2023-12-04 23:35] LABS: Differential Indicated SCAN CRITERIA MET
--- NOTE | 2023-12-04 23:35 | RAD_ITS ---
INDICATION: constipation COMPARISON: Abdominal CT previous day. FINDINGS: 2 frontal views of the abdomen. Again is noted large amount of stool within distended rectosigmoid as well as right colon, consistent with impaction. Associated gas-filled colon within the left upper abdomen. No obvious free air. No definite suspicious calcifications. No mass appreciated. RAD/Abdomen Single View (Portable) IMPRESSION: Again is noted large amount of stool within distended rectosigmoid as well as right colon, consistent with impaction. Associated gas-filled colon within the left upper abdomen. Electronically Signed: Marcelo Pang MD at 0:18 EDT ,
[2023-12-04] MEDS: Ketorolac 30 MG/ML Syringe IV (23:40)
[2023-12-04 23:47] LABS: AST(SGOT) 9 U/L (15-37); Alanine Aminotransfer ALT/SGPT 16 U/L (16-61); Albumin, Serum 3.8 g/dL (3.2-5.0); Alkaline Phosphatase 86 U/L (45-117); Anion Gap 5 (5-15); BUN 20 mg/dL (7-18); BUN/Creat Ratio 17.4 RATIO (10-20); Bilirubin, Direct 0.21 mg/dL (0.00-0.30); Calcium,Total 9.2 mg/dL (8.5-10.1); Chloride 102 mmol/L (98-107); Creatinine, Serum 1.15 mg/dL (0.70-1.30); EST Glomerular Filtration Rate 81 mL/min (>60); Est Glom Filt Rate - Afr Amer 99 mL/min (>60); Estimated Creatinine Clearance 101.17 ml/min; Globulin 3.9 g/dL (2.2-4.2); Glucose 125 mg/dL (74-106); Lipase 14 U/L (13-75); Potassium 3.8 mmol/L (3.5-5.1); Protein, Total 7.7 g/dL (6.4-8.2); Sodium Level 137 mmol/L (136-145)
[2023-12-05 00:10] LABS: Differential Comment SCANNED
[2023-12-05 01:00] VITALS: BP 125/80; PULSE 92; RESP 16; O2SAT 99
--- NOTE | 2023-12-05 01:33 | EDS_ITS ---
HPI History of Present Illness Chief Complaint: Nausea/Vomiting/Diarrhea Informant: patient and spouse/S.O. Narrative Narrative: Patient is a 28-year-old male with past medical history of constipation. He states that Sunday night into Sunday morning he developed subjective fevers and chills with myalgias and recurrent bouts of nausea vomiting and loose stool/diarrhea. He does state that a coworker has been out recently with similar symptoms. Otherwise he denies any known sick contacts. He does report a history of constipation and states that this occasion has caused him to have bouts of vomiting. He states he took Zofran as directed but there is no improvement of the emesis and therefore he comes in for evaluation. With the loose stool he denies any recent travel outside the country antibiotic use camping activities or livestock exposure [facility] Medical History (Updated 12/05/23 @ 03:[address] Lm Bates, ) history of a broken arm Constipation Back pain Neck pain Headache Shoulder pain Home Medications ?Medication ?Instructions ?Recorded ?Last Taken ?Type naproxen 500 mg tablet 500 mg PO BID #14 tabs 09/10/19 Unknown Rx ondansetron 4 mg disintegrating 4 mg PO Q8H PRN PRN Nausea #10 tabs 12/03/23 Unknown Rx tablet linaclotide 145 mcg capsule 145 mcg PO DAILY 30 days #30 caps 12/05/23 Unknown Rx (Linzess) prochlorperazine maleate 10 mg 10 mg PO TID PRN nausea and 12/05/23 Unknown Rx tablet (Compazine) vomiting 7 days #21 tabs Allergy/AdvReac Type Severity Reaction Status Date / Time morphine AdvReac Constipatio Verified 12/04/23 21:59 n Family History Other Cancer Diabetes Hypertension Hypotension Surgical History (Updated 07/27/19 @ 18:[address] Rod Gilman, ) History of colonoscopy Social History (Updated 06/27/19 @ 11:23 by Ryan KOLB, PA) Smoking Status: Never smoker ROS ROS ED Constitutional Constitutional ED: Reports chills, fever(s) and subjective Eyes Eyes: Denies blurry vision or change in vision ENT ENT ED: Denies sore throat Cardiovascular Cardiovascular: Denies chest pain Respiratory/Chest Respiratory/Chest: Denies cough or dyspnea Gastrointestinal Gastrointestinal: Reports abdominal pain, diarrhea, nausea and vomiting; Denies melena Genitourinary Genitourinary ED: Denies dysuria or hematuria Musculoskeletal Musculoskeletal: Reports myalgias Integumentary Denies rash Neurologic Neurologic: Reports headache(s) Hematologic/Lymphatic Hematologic/Lymphatic: Denies easy bleeding or easy bruising EXAM Physical Exam Const Vital Signs: 12/04/23 21:56 12/04/23 23:28 12/05/23 01:00 Temperature 96.8 F L 98 F Temperature Source Temporal Oral Pulse Rate 110 H 92 Respiratory Rate 17 16 Blood Pressure 125/67 H 125/80 H Blood Pressure Mean 86 95 Pulse Ox 99 99 Oxygen Delivery Method Room Air Room Air 12/05/23 01:40 Temperature 97.7 F L Temperature Source Pulse Rate 88 Respiratory Rate 16 Blood Pressure 113/70 Blood Pressure Mean 84 Pulse Ox 97 Oxygen Delivery Method Positive well nourished and well developed General Appearance ED: well developed; Negative for pallor HEENT HEENT Narrative: Mucous membranes are slightly dry and tacky without secondary findings to suggest infection No tongue or lip swelling no oral lesions no airway edema or compromise Eyes PERRL and EOMs intact bilaterally General Eye ED: Negative for scleral icterus Neck supple Neck Narrative: No nuchal rigidity or meningeal signs Resp normal respiratory effort and clear to auscultation bilaterally Cardio regular rhythm Rate: tachycardic and other Other Details: Slightly tachycardic rate with regular rhythm No murmurs rubs or gallops GI non-distended and no masses GI Narrative: Abdomen is soft and nondistended with hyperactive bowel sounds. There is mild generalized diffuse pain with palpation without voluntary guarding or rigidity. No pulsatile mass or fluid wave Auscultation: hyperactive bowel sounds Palpation: soft Back/Spine no CVA tenderness Extremity normal to inspection Neuro oriented x3, CN's II-XII intact bilaterally and no sensory deficits noted Sensorium / Orientation: alert Motor Exam: strength 5/5 throughout Psych Psych Narrative: Patient has a flat affect Skin no rashes or lesions noted Skin Narrative: Skin turgor is slightly increased. No jaundice or overlying soft tissue changes to suggest infection General Skin Exam: Negative for jaundice or pallor MDM MDM MDM Narrative Medical decision making narrative: Patient arrived to the ER slightly tachycardic but otherwise with stable vitals. History and exam is most consistent with viral stomach infection such as [place] or rotavirus. However there is concern for atypical COVID or influenza as a cause. With history of constipation there is also concern he could have an obstruction or perforation. With recurrent bouts of vomiting and diarrhea he could also have electrolyte abnormality or acute kidney injury. Therefore basic labs were obtained as well as a KUB. White count is elevated at 14.5 but this is improved from his white count of 15.4 the other day. Otherwise his lipase is normal going against pancreatitis and he has no signs of acute kidney injury or severe electrolyte abnormality. X-ray also showed changes consistent with constipation without obstruction or perforation. After IV hydration the patient's vitals improved and after treatment with Benadryl and Compazine he had resolution of his nausea vomiting and was able to drink water without bouts of emesis. As he does not have recent antibiotic use or travel I have low concern for C. difficile or infectious diarrhea such as enterocolitis or E. coli and do not feel need for stool sample. As the patient's vitals have stabilized his symptoms have resolved and his workup reveals no clinically significant findings she is otherwise safe for discharge as his history and exam medicate this is most likely viral in nature and will resolve spontaneously History & Record Review Discussion w/independent historian: Patient and Significant other Lab Data Attestation: I reviewed the patient's lab results. Labs: Laboratory Results - last 24 hr 12/04/23 23:10 WBC 14.5 H RBC 5.73 Hgb 16.7 H Hct 47.9 MCV 83.6 MCH 29.1 MCHC 34.9 RDW Std Deviation 37.1 RDW Coeff of Malika 12.3 Plt Count 338 MPV 9.2 Immature Gran % (Auto) 0.300 Neut % (Auto) 78.0 H Lymph % (Auto) 8.2 L Stewart % (Auto) 13.3 H Eos % (Auto) 0.0 Baso % (Auto) 0.2 Absolute Neuts (auto) 11.3 H Absolute Lymphs (auto) 1.19 Nucleated RBC % 0 Differential Comment SCANNED Diff Path Review May foll Sodium 137 Potassium 3.8 Chloride 102 Carbon Dioxide 29.0 Anion Gap 5 BUN 20 H Creatinine 1.15 Estim Creat Clear Calc 101.17 Est GFR (MDRD) Af Amer 99 Est GFR (MDRD) Non-Af 81 BUN/Creatinine Ratio 17.4 Glucose 125 H Calcium 9.2 Total Bilirubin 0.60 Direct Bilirubin 0.21 AST 9 L ALT 16 Alkaline Phosphatase 86 Total Protein 7.7 Albumin 3.8 Globulin 3.9 Lipase 14 Radiography Diagnostic Testing: Clinical Impression(s) from Imaging Studies KUB X-Ray 12/04/23 23:35 IMPRESSION: Again is noted large amount of stool within distended rectosigmoid as well as right colon, consistent with impaction. Associated gas-filled colon within the left upper abdomen. Electronically Signed: Marcelo Pang MD at 0:18 EDT , KUB as interpreted by the emergency medicine physician reveals a large volume of stool within the rectosigmoid colon consistent with constipation without signs of perforation or obstruction Discharge Plan Triage Chief Complaint: Nausea/Vomiting/Diarrhea ED Provider: Lm Bates Dx/Rx/DC Orders Clinical Impression: Nausea & vomiting, Constipation, Mild dehydration Instructions: ED Constipation (Adult), ED Vomiting (Adult) Prescriptions: New prochlorperazine maleate [Compazine] 10 mg tablet 10 mg PO TID PRN (Reason: nausea and vomiting) 7 Days Qty: 21 0RF Linzess 145 mcg capsule 145 mcg PO DAILY 30 Days Qty: 30 0RF No Action naproxen 500 MG tablet 500 mg PO BID Qty: 14 0RF ondansetron 4 mg tablet,disintegrating 4 mg PO Q8H PRN PRN (Reason: Nausea) Qty: 10 0RF Stand Alone Forms: ED Work / School Excuse Primary Care Provider: Gi Henderson NP Referrals: Gi Henderson NP, [facility] [Primary Care Provider] - Activity Restrictions/Additional Instructions: Please keep yourself well-hydrated and take the prescribed medication as directe d to help control any further bouts of nausea and vomiting. You may still take the Zofran if the Compazine is not doing well enough to control your bouts of nausea and vomiting. Return to the ER should you have any further concerns Print Language: Stateless Disposition Disposition: Home, Self Care Discharge Date/Time: 12/05/23 01:42
[2023-12-05 01:40] VITALS: BP 113/70; PULSE 88; RESP 16; TEMP 36.5; O2SAT 97
[2023-12-05 15:02] LABS: Pathologist Review Reviewed
== END 2023-12-05 01:42 | disposition home or self-care (01) ==
PROVIDERS: Emergency Provider Emergency Medicine; PCP Nurse Practitioner Primary Care; Visit Provider Emergency Medicine
DX: R11.2 Nausea with vomiting, unspecified (principal); R19.7 Diarrhea, unspecified; K59.00 Constipation, unspecified; E86.0 Dehydration
CPT/HCPCS: 74018; 80048; 80076; 83690; 85025; 87631; 96361; 96374; 96375; 99284; J7030; A4216

== ENCOUNTER → 2024-04-01 | Outpatient (CLI) | payer OTHER, SELFPAY ==
[2024-04-03 06:08] LABS: V-Zoster IgG (Immunity) Reactive (Non Reactive)
== END | disposition home or self-care (01) ==
LOC: MTLAB 12:46
PROVIDERS: PCP Nurse Practitioner Primary Care; Referring Provider Nurse Practitioner Primary Care; Visit Provider Nurse Practitioner Primary Care
DX: Z00.00 Encounter for general adult medical examination without abnormal findings (principal)
CPT/HCPCS: 36415; 86787

== ENCOUNTER → 2024-04-24 | Outpatient (CLI) | payer OTHER, SELFPAY ==
[2024-04-24 10:43] LABS: Hepatitis B Surface Antibody REAC; Hepatitis B Surface Antigen Nonreactive (Nonreactive)
[2024-04-25 05:07] LABS: Hepatitis B Core AB IgM Negative (Negative)
== END | disposition home or self-care (01) ==
LOC: MTLAB 08:23
PROVIDERS: PCP Nurse Practitioner Primary Care; Referring Provider Nurse Practitioner Primary Care; Visit Provider Nurse Practitioner Primary Care
DX: Z02.9 Encounter for administrative examinations, unspecified (principal)
CPT/HCPCS: 36415; 86705; 86706; 87340

== ENCOUNTER 2024-05-15 18:00 | Outpatient (RCR) | payer OTHER, SELFPAY ==
--- NOTE | 2024-05-15 18:52 | HP.PTEVAL ---
Patient's Visit Information Visit Information Visit Information: CARLA SORTO is a 28 year old M referred to Physical Therapy by Dr. Anthony Reyes MD with a diagnosis of L medial meniscus tear, sprain. Date of Evaluation: 05/15/24 Physical Therapist: Ruben Brush, DPT, OCS, CSCS Visit Plan Frequency: 2x /Week Duration: 4-6 Weeks Plan: 2-3x/week for 4-6 weeks for ... IE HEP: quad with hip extended and HS stretch 3 0 5x daily, ice if sore, AVOID AGGRAVATING ACTIVITIES when possible.HO given Please treat in clinic with core and hip and LE strength with progression of forces to tolerance, rollout and streetch L quad and HS, ice adn TENS if painful at rest. Progression of funcitonal activity as pain improves b ack to pivot and full function once painfree. may do leg pull and knee mobs grade 1-2 to help scarring remodel. Subjective Subjective: L knee torn meniscus when walking at work adn pushing baby scale into a room. That was one month ago adn felt a pop in knee and went down on other knee. Hurting since. Intermittently, Worse with being on feet alot. 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 Worse at end of day. Activities at home are normal but being on feet like carrying gorcey in can cause pain. Steps to basement hurt and make him worse. Sleeping fine. 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 No regular exercises but walk dog a mile each day and is now painful when he was not prior. using ice and heat at home. Dr. Carl wants therapy but MRI already done and showed meniscal tear. Basic ADLs all I Pain L knee: Pain Intensity (Out of 10): 0 Pain Intensity Range: 0 and 5 Comment: after ER clinical was worse. Objective Objective: Walks into PT with normal gait pattern and no pain, squats with minor medial L knee pain, steps reciprocal without rail without pain today. chair and bed trasnfer I without pain. HS min tight at -22 90/90 B, quad loose but painful in L meial knee to stretch if hip extended. AROM hip ext L with resistance is painful medial knee also. Tender to palpation L medial joint line moderately. - valgus and varus, - bounce home, - disco, - ant drawer, - salome, - post sag on L. AROM is full L and R 0-140 without pain. SLR is able without lag B. strength hips 3+ abd and ext with pain on L knee., flexion is 4. Knee flexion adn extension without pain 4/5 B. ankle strength 4+ without pain. able to heel and toe walk but heel walk is painful L medial knee. Balance/Special Test Scores Lower Extremity Functional Score: 20 Goals Goal 1:: Full aROM L knee with hip extended and L hip rsisted ext without pain Goal Time Frame: 4-6 Weeks Goal 2:: Work full day without increased pain in L medial knee Goal Time Frame: 4-6 Weeks Goal 3:: 1/10 pain at worst and 90% better overall Goal Time Frame: 4-6 Weeks Goal 4:: LEFS score 68 Goal Time Frame: 4-6 Weeks Rehabilitation Potential Physical Therapy Diagnosis: pain with some movement and WB limiting function. Rehabilitation Potential: Good Anticipated Interventions Patient/Client Instruction: Educate patient on: Condition and Plan of Care For the Purpose of:: To decrease pain, To increase ROM, To improve nutrient delivery to tissue, To improve muscle performance and motor function, To increase tolerance to activity/condition/position and To improve gait and locomotor functions Therapeutic Exercise to Include: Strength training, Flexibilty training and Passive ROM For the Purpose of:: To decrease pain, To increase ROM, To improve nutrient delivery to tissue, To improve muscle performance and motor function and To increase tolerance to activity/condition/position Manual Therapy Techniques to Include: Mobilization and Soft tissue mobilization For the Purpose of:: To decrease pain, To decrease swelling/inflammation, To improve nutrient delivery to tissue and To improve muscle performance and motor function TENS: Yes Cryotherapy (ice pack, ice massage): Yes For the Purpose of:: To decrease pain, To decrease swelling/inflammation and To improve nutrient delivery to tissue Text: Thank you for the opportunity to evaluate your patient. For Medicare and Medicare HMO plans, please review the plan of care and approve it. It will need to be FAXED BACK to us at [phone] for Medicare purposes. For Medicare only, by signing this I certify the plan of care. Please let me know if there are questions or concerns regarding this plan of care. Physician Signature: Date:
--- NOTE | 2024-06-25 08:41 | HP.PT.NRP ---
Patient Information Patient Information: CARLA SORTO was seen in my office for initial evaluation on 05/15/24. The following Plan of Care was established for this patient: POC Established Initial Frequency: 2x /Week Initial Duration: 4-6 Weeks Anticipated Interventions Patient/Client Instruction: Educate patient on: Condition and Plan of Care For the Purpose of:: To decrease pain, To increase ROM, To improve nutrient delivery to tissue, To improve muscle performance and motor function, To increase tolerance to activity/condition/position and To improve gait and locomotor functions Therapeutic Exercise to Include: Strength training, Flexibilty training and Passive ROM For the Purpose of:: To decrease pain, To increase ROM, To improve nutrient delivery to tissue, To improve muscle performance and motor function and To increase tolerance to activity/condition/position Manual Therapy Techniques to Include: Mobilization and Soft tissue mobilization For the Purpose of:: To decrease pain, To decrease swelling/inflammation, To improve nutrient delivery to tissue and To improve muscle performance and motor function TENS: Yes Cryotherapy (ice pack, ice massage): Yes For the Purpose of:: To decrease pain, To decrease swelling/inflammation and To improve nutrient delivery to tissue Last Seen Last Seen: This patient was last seen in our office 05/15/24. Pertinent comments regarding their Physical therapy will appear below: Pt seen for eval and POC established. pt did not schedule or attend any further visits. At this point, it has been over 5 weeks and I will discontinue from my care. At this point I will be discontinuing this patient from physical therapy. I would be happy to see this patient again in the future if found appropriate by the physician. Thank you! Ruben Brush, DPT, OCS, CSCS Balance/Gait/Functional tests Balance/Special Test Scores Lower Extremity Functional Score: 20
== END 2024-05-15 19:00 | disposition home or self-care (01) ==
LOC: PT 18:00
PROVIDERS: PCP Nurse Practitioner Primary Care; Referring Provider Orthopaedic Surgery; Visit Provider Orthopaedic Surgery
DX: S83.8X2D Sprain of other specified parts of left knee, subsequent encounter (principal); S83.242D Other tear of medial meniscus, current injury, left knee, subsequent encounter
CPT/HCPCS: 97110; 97161